=== PATIENT | female | born 1995 | race Hispanic/Latino ===

== ENCOUNTER 2019-08-11 12:22 | Emergency (ER) | payer BC ==
[2019-08-11 12:54] LABS: Urine Blood NEGATIVE (NEG); Urine Glucose NEGATIVE (NEG); Urine Protein NEGATIVE (NEG); Urine Specific Gravity 1.015 (1.005-1.030)
[2019-08-11 13:04] LABS: Absolute Lymphocytes (CBC) 1.6 K/uL (0.7-4.9); Basophils % 0.4 % (0-1.3); Hematocrit 46.7 % (36.0-45.0); Lymphocytes % 20.4 % (15.3-44.8)
[2019-08-11 13:23] LABS: ALT/SGPT 19 U/L (12-78); AST/SGOT 21 U/L (15-37); Albumin 3.8 g/dL (3.4-5.0); Alkaline Phosphatase 50 U/L (45-117); BUN Blood Urea Nitrogen 12 mg/dL (7-18); Bicarbonate 27 mmol/L (21-32); Bilirubin Direct < 0.1 mg/dL (0-0.2); Bilirubin Total 0.4 mg/dL (0.2-1.0); Glucose Level 84 mg/dL (74-106); Lipase 137 U/L (73-393); Potassium 3.5 mmol/L (3.5-5.1); Protein, Total 8.1 g/dL (6.4-8.2); Sodium Level 138 mmol/L (136-145)
--- NOTE | 2019-08-11 13:54 | RAD REPORT ---
EXAM DESCRIPTION: Ilana Single View08/11/2019 1:40 pm CLINICAL HISTORY: Shortness of breath COMPARISON: none FINDINGS: The lungs appear clear of acute infiltrate. The heart is normal size IMPRESSION: No acute abnormalities displayed
--- NOTE | 2019-08-11 14:53 | RAD REPORT ---
EXAM DESCRIPTION: CT - Abdomen Pelvis W Contrast - 08/11/2019 2:20 pm CLINICAL HISTORY: Abdominal pain COMPARISON: none. TECHNIQUE: Computed axial tomography of the abdomen pelvis was obtained. 100 cc Isovue-300 was admin istered intravenously. Oral contrast was not requested which limits evaluation of bowel. All CT scans are performed using dose optimization technique as appropriate and may include automated exposure control or mA/KV adjustment according to patient size. FINDINGS: The liver, spleen, pancreas, adrenal and kidneys appear unremarkable. There is no evidence of diverticulitis. An abnormal appendix is not seen. 2 centimeter right ovarian cyst without significant free fluid IMPRESSION: 2 centimeter right ovarian cyst without significant free fluid .
--- NOTE | 2019-08-11 15:00 | EDPHYS ---
Physician Documentation [facility] Name: Maria Elena Felix Age: 23 yrs Sex: Female : 1995 Arrival Date: 08/11/2019 Time: 12:25 Bed 5 Private MD: ED Physician Juan Jose Cox HPI: 08/11 12:49 This 23 yrs old Female presents to ER via Ambulatory with complaints of jmm Abdominal Pain. 12:49 The patient presents with abdominal pain in the lower abdomen. Onset: The jmm symptoms/episode began/occurred gradually, 2 week(s) ago. The symptoms do not radiate. Associated signs and symptoms: Pertinent positives: nausea and vomiting, constipation. The symptoms are described as achy, sharp. Modifying factors: The symptoms are alleviated by nothing, the symptoms are aggravated by nothing. This is a 23 year old female with no chronic medical conditions that presents to the ED with complaints of lower abdominal pain beginning approx 2 weeks ago with vomiting, constipation. Patient denies pelvic pain, denies discharge, denies abnormal bleeding. . 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 - Social history:: Patient/guardian denies using alcohol, street drugs, Smoking status: Patient denies any tobacco usage or history of. ROS: 12:49 Constitutional: Negative for fever, chills, and weight loss, Cardiovascular: Negative jmm for chest pain, palpitations, and edema, Respiratory: Negative for shortness of breath, cough, wheezing, and pleuritic chest pain. 12:49 Abdomen/GI: Positive for abdominal pain, nausea and vomiting, constipation. 12:49 All other systems are negative. Exam: 12:49 Constitutional: This is a well developed, well nourished patient who is awake, alert, jmm and in no acute distress. Head/Face: atraumatic. Eyes: EOMI, no conjunctival erythema appreciated ENT: Moist Mucus Membranes Neck: Trachea midline, Supple Chest/axilla: Normal chest wall appearance and motion. Cardiovascular: Regular rate and rhythm. No edema appreciated Respiratory: Normal respirations, no respiratory distress appreciated 12:49 Skin: General appearance color normal MS/ Extremity: Moves all extremities, no obvious deformities appreciated, no edema noted to the lower extremities Neuro: Awake and alert, normal gait Psych: Behavior is normal, Mood is normal, Patient is cooperative and pleasant 12:49 Abdomen/GI: Inspection: abdomen appears normal, Bowel sounds: normal, Palpation: soft, moderate abdominal tenderness, in the left lower quadrant. 12:49 Back: CVA tenderness, is absent. Vital Signs: 12:31 BP 111 / 82; Pulse 76; Resp 17; Temp 98.0; Pulse Ox 99% ; Weight 56.25 kg; Height 5 ft. ll1 4 in. (162.56 cm); Pain 5/10; 15:15 BP 105 / 72; Pulse 73; Resp 18; Pulse Ox 100% ; ah 12:31 Body Mass Index 21.28 (56.25 kg, 162.56 cm) ll1 MDM: 12:46 Patient medically screened. [facility] 14:57 Data reviewed: vital signs, nurses notes. Counseling: I had a detailed discussion with [facility] the patient and/or guardian regarding: the historical points, exam findings, and any diagnostic results supporting the discharge/admit diagnosis, lab results, radiology results, the need for outpatient follow up, to return to the emergency department if symptoms worsen or persist or if there are any questions or concerns that arise at home. 14:58 Data reviewed: lab test result(s), radiologic studies, CT scan. ED course: Patient is [facility] alert and non toxic in appearance in the ED. Patient advised to follow up with pcp and otherwise given strict return precautions. Patient understood and agrees with the plan of care. . 08/11 12:46 Order name: Basic Metabolic Panel; Complete Time: 13:32 [facility] 08/11 12:46 Order name: CBC with Diff; Complete Time: 13: [facility] 08/11 12:46 Order name: Creatinine for Radiology; Complete Time: 13:32 [facility] 08/11 12:46 Order name: Hepatic Function; Complete Time: 13: [facility] 08/11 12:46 Order name: Lipase; Complete Time: 13: [facility] 08/11 12:51 Order name: Urine Dipstick--Ancillary (enter results); Complete Time: 13: 08/11 12:41 Order name: Urine Dipstick-Ancillary (obtain specimen); Complete Time: 12:54 [facility] 08/11 12:41 Order name: Urine Test (obtain specimen); Complete Time: 12:54 [facility] 08/11 12:46 Order name: IV Saline Lock; Complete Time: 12:54 [facility] 08/11 12:51 Order name: Urine --Ancillary (enter results); Complete Time: 13:09 08/11 13:19 Order name: D-Dimer; Complete Time: 14:10 [facility] 08/11 13:19 Order name: Chest Single View XRAY; Complete Time: 13:58 [facility] 08/11 14:11 Order name: CT Abd/Pelvis - IV Contrast Only; Complete Time: 14:56 [facility] 08/11 12:46 Order name: Labs collected and sent; Complete Time: 12:54 [facility] Administered Medications: No medications were administered Disposition: 17:47 Co-signature as Attending Physician, Juan Jose Cox MD Chart signed for administrative ps1 purposes. . Disposition: 08/11/19 14:59 Discharged to Home. Impression: Unspecified abdominal pain, Vomiting, Dyspnea, unspecified. - Condition is Stable. - Discharge Instructions: Abdominal Pain, Adult, Nausea and Vomiting, Adult, Shortness of Breath. - Prescriptions for Zofran ODT 4 mg Oral tablet,disintegrating - place 1 tablet by TRANSLINGUAL route every 4-6 hours; 20 tablet. - Medication Reconciliation Form, Thank You Letter, Antibiotic Education, Prescription Opioid Use, Work release form form. - Follow up: Private Physician; When: 2 - 3 days; Reason: Recheck today's complaints, Continuance of care, Re-evaluation by your physician. Signatures: Dispatcher [employer] [facility] Paola Goel, RN Ron Emery PA PA [facility] Juan Jose Cox MD MD ps1 Harris, Amy RN RN Nickolas Rothman RN RN ll1 Corrections: (The following items were deleted from the chart) 13:24 12:47 Abdomen Pelvis W Con+CT.RAD.BRZ ordered. [facility] 15:16 14:59 08/11/2019 14:59 Discharged to Home. Impression: Unspecified abdominal pain; ah Vomiting; Dyspnea, unspecified. Condition is Stable. Forms are Medication Reconciliation Form, Thank You Letter, Antibiotic Education, Prescription Opioid Use. Follow up: Private Physician; When: 2 - 3 days; Reason: Recheck today's complaints, Continuance of care, Re-evaluation by your physician. ricci
--- NOTE | 2019-08-11 15:00 | ER ---
Nurse's Notes [facility] Name: Maria Elena Felix Age: 23 yrs Sex: Female : 1995 Arrival Date: 08/11/2019 Time: 12:25 Bed 5 Private MD: Diagnosis: Unspecified abdominal pain;Vomiting;Dyspnea, unspecified Presentation: 08/11 12:31 Chief complaint: Patient states: Abdominal pain for 1 month gradually increasing. ll1 History of constipation. +N/V last night. No fever. Coronavirus screen: The patient has NOT traveled to [place] in the past 14 days. Proceed with normal triage procedures. Ebola Screen: No symptoms or risks identified at this time. Initial Sepsis Screen: Does the patient meet any 2 criteria? No. Patient's initial sepsis screen is negative. Does the patient have a suspected source of infection? No. Patient's initial sepsis screen is negative. Risk Assessment: Do you want to hurt yourself or someone else? Patient reports no desire to harm self or others. 12:31 Method Of Arrival: Ambulatory ll1 12:31 Acuity: RONALD 3 ll1 12:45 Onset of symptoms was June 2019. sv Triage Assessment: 12:35 General: Appears in no apparent distress. comfortable, Behavior is cooperative, bp appropriate for age, anxious. Pain: Complains of pain in abdomen. EENT: No deficits noted. Neuro: No deficits noted. Cardiovascular: No deficits noted. Respiratory: No deficits noted. GI: Reports nausea, vomiting. : No signs and/or symptoms were reported regarding the genitourinary system. Derm: No deficits noted. Musculoskeletal: No deficits noted. 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 - Social history:: Patient/guardian denies using alcohol, street drugs, Smoking status: Patient denies any tobacco usage or history of. Screenin:45 Abuse screen: Denies threats or abuse. Denies injuries from another. Nutritional sv screening: No deficits noted. Tuberculosis screening: No symptoms or risk factors identified. Fall Risk None identified. Assessment: 12:45 General: Appears in no apparent distress. uncomfortable, well groomed, well developed, sv Behavior is calm, cooperative, appropriate for age. Pain: Complains of pain in umbilical area and left lower quadrant Pain currently is 5 out of 10 on a pain scale. Pain began a month ago Is intermittent, Also complains of constipation. Neuro: Level of Consciousness is awake, alert, obeys commands, Oriented to person, place, time, situation, Moves all extremities. Full function Gait is steady. Respiratory: Airway is patent Respiratory effort is even, unlabored, Respiratory pattern is regular, symmetrical. GI: Abdomen is flat, non-distended, Bowel sounds present X 4 quads. Abd is soft X 4 quads Abdomen is tender to palpation in umbilical area and left lower quadrant Reports lower abdominal pain, constipation, nausea, vomiting. Derm: Skin is pink, warm \T\ dry. Musculoskeletal: Range of motion: intact in all extremities. 13:50 Reassessment: Patient appears in no apparent distress at this time. No changes from sv previously documented assessment. Patient and/or family updated on plan of care and expected duration. Pain level reassessed. Patient is alert, oriented x 3, equal unlabored respirations, skin warm/dry/pink. 14:00 Reassessment: CT PENDING, NO ACUTE S/S NOTED. bp 15:09 Reassessment: PT D/C HOME AMBULATORY, DX WITH UNSPECIFIED ABDOMINAL PAIN. bp Vital Signs: 12:31 BP 111 / 82; Pulse 76; Resp 17; Temp 98.0; Pulse Ox 99% ; Weight 56.25 kg; Height 5 ft. ll1 4 in. (162.56 cm); Pain 5/10; 15:15 BP 105 / 72; Pulse 73; Resp 18; Pulse Ox 100% ; ah 12:31 Body Mass Index 21.28 (56.25 kg, 162.56 cm) ll1 ED Course: 12:25 Patient arrived in ED. as 12:34 Triage completed. ll1 12:34 Arm band placed on right wrist. Patient placed in an exam room. EKG completed in 1 triage. Results shown to MD. 12:36 Ron Moe PA is PHCP. [facility] 12:36 Juan Jose Cox MD is Attending Physician. [facility] 12:45 Patient has correct armband on for positive identification. Placed in gown. Bed in low sv position. Call light in reach. 12:50 Inserted saline lock: 20 gauge in right antecubital area, using aseptic technique. sv Blood collected. Flushed right antecubital with 5 ml normal saline. 12:53 Paola Goel, RN is Primary Nurse. sv 13:02 Awaiting lab results, Awaiting CT Scan. sv 13:28 Initial lab(s) drawn, by sd, sent to lab. X-ray(s) taken. sv 13:30 Chest Single View XRAY In Process Unspecified. EDMS 14:22 CT Abd/Pelvis - IV Contrast Only In Process Unspecified. EDMS 15:09 No provider procedures requiring assistance completed. IV discontinued, intact, bp bleeding controlled, No redness/swelling at site. Pressure dressing applied. Administered Medications: No medications were administered Outcome: 14:59 Discharge ordered by . m 15:10 Discharged to home ambulatory. bp 15:10 Condition: stable 15:10 Discharge instructions given to patient, Instructed on discharge instructions, follow up and referral plans. medication usage, Demonstrated understanding of instructions, follow-up care, medications, Prescriptions given X 1. 15:16 Patient left the ED. Signatures: Dispatcher [employer] EDMS Paola Goel, RN RN Ron Moe PA PA jmm Martinez, Amelia as Peltier, Brian, RN RN Lorrie Pena, Nickolas Rogers RN RN RN ll1
[2019-08-11 15:29] VITALS: TEMP 98
[2019-08-11 15:31] VITALS: BP 105/72; O2SAT 100
== END 2019-08-11 15:16 | disposition home or self-care (01) ==
LOC: ER 12:22
DX: R11.10 Vomiting, unspecified (principal); R06.00 Dyspnea, unspecified
CPT/HCPCS: 85025; 80048; 36415; 81025; 85379; 80076; 81003; 83690; 74177; 71045; 99284; Q9967